=== PATIENT | male | born 1955 | race Caucasian/White ===

== ENCOUNTER → 2016-10-27 | Outpatient (CLI) | payer OTHER ==
[~2016-10-27] MED LIST: ASCORBIC ACID500 MG; DULCOLAX5 MG; FLEXERIL10 MG; GLUCOPHAGE500 MG; HIPREX1 GM; HUMULIN 70100 UNIT/M; LEVEMIR FL100 UNIT/1; LEVEMIR100 UNIT/1; LEVOTHROID (SY25 MCG; LIORESAL10 MG; MILK OF MA400 MG/5 M; MIRALAX PO527 GM/BOT; NEURONTIN100 MG; NORCO 10-325 T1 EACH; NORCO 5-325 MG1 TAB; NOVOLOG100 UNIT/M; PROTONIX20 MG; SENOKOT S (S1 TABLET; TRICOR48 MG; ULTRAM50 MG; VESICARE5 MG; ZETIA10 MG; ZOCOR10 MG
== END | disposition disaster alternative care site (69) ==
LOC: GRAD 12:41
DX: N31.9 Neuromuscular dysfunction of bladder, unspecified (principal); G82.20 Paraplegia, unspecified; N32.89 Other specified disorders of bladder